=== PATIENT | male | born 1965 | race Hispanic/Latino ===

== ENCOUNTER 2017-03-09 16:28 | Observation (INO) | payer OTHER ==
[~2017-03-09] VITALS: Ht 175.3 cm; Wt 95.2 kg
[2017-03-09 17:09] LABS: HEMATOCRIT 42.1 % (38.0-50.0); MCH 31.2 PG (29.0-34.0); MCHC 33.7 G/DL (30.0-36.0); MCV 92.5 FL (86-99); MEAN PLAT.VOLUME 10.9 uM^3 (9.0-12.4); PLATELET COUNT 268 K/uL (156-360); RBC DIS.WIDTH-CV 14.1 % (11.8-14.6); RBC DIS.WIDTH-SD 47.7 % (39-53); RED BLOOD COUNT 4.55 M/uL (4.00-5.50); WHITE BLOOD COUNT 8.5 K/uL (4.1-10.2)
[2017-03-09 17:21] LABS: CHLORIDE 108 mEq/L (99-109); POTASSIUM 3.8 mEq/L (3.7-5.4); SODIUM 141 mEq/L (136-147)
[2017-03-09 17:22] LABS: GLUCOSE 128 mg/dL (70-99)
[2017-03-09 17:24] LABS: ANION GAP 9 MEQ/L (2-14)
[2017-03-09 17:27] LABS: GFR ESTIMATE (CALCULATED) > 59 mL/min/; UREA NITROGEN (BUN) 14 mg/dL (9-23)
[2017-03-09] MEDS ORDERED: ATORVASTATIN CA20 MG PO (20:44)
[2017-03-09] MEDS ORDERED: LISINOPRIL10 MG PO (20:44)
[2017-03-09] MEDS ORDERED: ZOLPIDEM TARTRA10 MG PO (20:45)
[2017-03-09] MEDS ORDERED: PANTOPRAZOLE SO40 MG PO (20:46)
[2017-03-09] MEDS ORDERED: ALEVE220 MG PO (20:48)
[2017-03-09] MEDS ORDERED: TYLENOL REGULA325 MG PO (20:49)
[2017-03-09 21:45] LABS: TOTAL BILIRUBIN 0.8 mg/dL (0.0-1.0)
[2017-03-09 21:46] LABS: ALKALINE PHOSPHATASE 71 IU/L (3-129)
[2017-03-09 21:49] LABS: DIRECT BILIRUBIN 0.3 mg/dL (0.0-0.3)
[2017-03-09 22:24] LABS: PROTHROMBIN TIME 11.2 SEC (10.2-12.9)
[2017-03-10 00:06] VITALS: BP 121/65
[2017-03-10 01:16] LABS: HEMATOCRIT 37.6 % (38.0-50.0); MCV 92.2 FL (86-99)
[2017-03-10 03:51] VITALS: BP 124/59
[2017-03-10 03:59] VITALS: BP 113/55
[2017-03-10 05:17] LABS: HEMATOCRIT 39.2 % (38.0-50.0); MCH 31.7 PG (29.0-34.0); MCHC 33.9 G/DL (30.0-36.0); MCV 93.3 FL (86-99); PLATELET COUNT 242 K/uL (156-360); RBC DIS.WIDTH-CV 14.2 % (11.8-14.6); RBC DIS.WIDTH-SD 48.7 % (39-53); WHITE BLOOD COUNT 8.1 K/uL (4.1-10.2)
[2017-03-10 05:37] LABS: ANION GAP 7 MEQ/L (2-14); CHLORIDE 110 MEQ/L (99-109); GFR ESTIMATE (CALCULATED) > 59 mL/min/; SAMPLE HEMOLYSIS CHECK 0; SAMPLE ICTERIC CHECK 0; SAMPLE LIPEMIA CHECK 0; SODIUM 141 MEQ/L (136-147); UREA NITROGEN (BUN) 14 mg/dL (9-23)
[2017-03-10 05:40] LABS: GLUCOSE 90 mg/dL (70-99)
[2017-03-10 07:26] VITALS: BP 127/82
[2017-03-10 11:31] VITALS: BP 133/85
[2017-03-10 12:24] LABS: HEMATOCRIT 42.7 % (38.0-50.0)
[2017-03-10] MEDS ORDERED: TRAMADOL HCL50 MG PO (18:08)
== END 2017-03-10 18:27 | disposition home or self-care (01) ==
LOC: EME 16:28 → 5WEST 20:41 → EDOF 20:41 → ENRESERV 20:43 → 5WEST 21:37
PROVIDERS: Hospitalist
DX: K62.5 Hemorrhage of anus and rectum (principal); R10.32 Left lower quadrant pain; I10 Essential (primary) hypertension; Z87.19 Personal history of other diseases of the digestive system; R59.1 Generalized enlarged lymph nodes; I25.10 Atherosclerotic heart disease of native coronary artery without angina pectoris; Z80.0 Family history of malignant neoplasm of digestive organs; Z80.42 Family history of malignant neoplasm of prostate; Z86.010 Personal history of colon polyps; Z82.49 Family history of ischemic heart disease and other diseases of the circulatory system; Z83.3 Family history of diabetes mellitus
CPT/HCPCS: 72110; 74177; 80048; 80076; 85014; 85018; 85027; 85610; 86850; 86900; 86901; 99281; 99285; G0378; J2270; J7030; J7040